=== PATIENT | female | born 1985 | race African-American/Black ===

== ENCOUNTER 2021-10-13 05:34 | Emergency (ER) | payer SELFPAY ==
--- NOTE | 2021-10-13 05:43 | XRR_ITS ---
PROCEDURE INFORMATION: Exam: XR Chest Exam date and time: 10/13/2021 5:57 AM Age: 35 years old Clinical indication: Angina and dyspnea; Patient HX: SOB chest tightness since 2 am this morning; Additional info: Dyspnea/cough TECHNIQUE: Imaging protocol: XR of the chest. Views: 1 view. COMPARISON: No relevant prior studies available. FINDINGS: Lungs: No CHF/pulmonary edema. Visible lungs appear essentially clear. Pleural spaces: No visible pneumothorax. No definite pleural fluid. Heart/Mediastinum: Heart size is within normal limits. Bones/joints: No significant acute finding. XR/XR chest 1V portable [id number] IMPRESSION: 1. Essentially unremarkable single view chest. 2. Other findings discussed above.
--- NOTE | 2021-10-13 05:43 | ED_ITS ---
HPI - General Adult General: Chief complaint: Chest Pain Stated complaint: chest tightness, Dizzy,Weakness Time Seen by Provider: 10/13/21 05:41 Source: patient Mode of arrival: ambulatory Limitations: no limitations History of Present Illness: 35-year-old female presents to the emergency room with complaints of lightheadedness dizziness and weakness while at work. She was working got very lightheaded dizzy felt extremely weak got to the point that she had to sit down. When she rested the symptoms did resolve. She had a little bit of chest discomfort with that as well. Patient has a history of anemia with menometrorrhagia and uterine fibroids. She was wanting to see gynecology to have definitive treatment but recently moved and has not established with a new physician. She has had anemia secondary to this in the past that required blood transfusions. Patient is not diabetic has no history of asthma or coronary artery disease. Her symptoms have completely resolved at this time. She denies any hematochezia melena hematemesis or coffee-ground emesis. She has had other episodes in the past that were not as intense as this. Onset (ago): minute(s) Location: chest Radiation: non-radiation Severity: moderate Relieving factors: none Exacerbating factors: none Associated symptoms: Reports chest pain, dyspnea, malaise, palpitations, short of breath and weakness; Deny confusion, cough, diaphoresis, decreased appetite, fevers/chills, headache(s), nausea, rash, seizures, syncope or vomiting Treatments prior to arrival: none Review of Systems Const: Reports: malaise; Denies: fever(s), chills, body aches or diaphoresis ENMT: Denies: throat pain, ear or mastoid pain, nasal discharge or nasal congestion Card: Reports: chest pain and palpitations; Denies: edema, swelling of feet/ankles or syncope Resp: Reports: dyspnea GI: Denies: abdominal pain, nausea, vomiting, hematemesis or coffee ground emesis : Denies: flank pain, difficulty voiding, dysuria, urinary frequency or urinary urgency Skin/Breast: Denies: rash or pruritus Neuro: Denies: headache(s) or confusion Endo: Reports: tired all the time; Denies: polyuria or polydipsia John/Lymph: Reports: other (Anemia) [facility] PFSH: Medical History Anemia Menometrorrhagia Surgical History Previous section X3 Social History Smoking and tobacco status: current every day smoker Physical Exam Const: GENERAL APPEARANCE: cooperative and comfortable ORIENTATION/CONSCIOUSNESS: Yes awake, Yes oriented to person, Yes oriented to place and Yes oriented to time HENMT: COMMON NORMALS: normocephalic, atraumatic and hearing grossly normal bilaterally HEAD & SCALP: normocephalic and atraumatic Resp: COMMON NORMALS: normal respiratory effort, No retractions, No use of accessory muscles and clear to auscultation bilaterally AUSCULTATION: clear to auscultation bilaterally Cardio: COMMON NORMALS: regular rate, regular rhythm and No murmurs present (Cardio) RATE: regular rate RHYTHM: regular rhythm GI: COMMON NORMALS: Soft to palpation and No hepatosplenomegaly present AUSCULTATION: Yes normoactive bowel sounds PALPATION: Yes Soft to palpation, No Tenderness to palpation present (GI), No Guarding due to palpation present (GI) and Yes No hepatosplenomegaly present Extremity: COMMON NORMALS: normal to inspection, capillary refill normal, no clubbing, cyanosis or edema, no calf tenderness and no pedal edema Neuro: SENSORIUM/ORIENTATION: Yes oriented to person, Yes oriented to place and Yes oriented to time Skin: COMMON NORMALS: no rashes or lesions noted GENERAL SKIN EXAM: no rashes or lesions noted Course Vital Signs: Vital signs: Vital Signs Temperature 98.1 F 10/13/21 05:48 Pulse Rate 71 10/13/21 05:48 Respiratory Rate 16 10/13/21 05:48 Blood Pressure 145/84 10/13/21 06:55 Pulse Oximetry 100 10/13/21 05:48 [facility] - General Adult Medical Decision Making Reviewed lab findings with the patient. Her hemoglobin is below 8 she is defin itely symptomatic and from her history that she gave she has had increasing symptoms to the point now where she presents to the emergency room. Her vital signs at this point are stable. We discussed the risks and benefits of going ahead and transfusing her. She would feel better this is obviously chronic given her indices her MCV is 69. She is already taking iron supplement. Ultimately after long discussion patient would prefer to go ahead with the transfusion. She also like to get referred to gynecology. 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 Given the fact she is previously had to be transfused and is being transfused again today I do think it is important that she follows through with this. We will make referral through case management gynecology. Transfuse 1 unit packed red blood cells and anticipate discharge. Lab Data I reviewed the patient's lab results. : 10/13/21 05:43 10/13/21 05:43 Laboratory Results WBC 8.7 10^3/uL (4.0-10.0) 10/13/21 05:43 RBC 4.11 10^6/uL (4.1-5.3) 10/13/21 05:43 Hgb 7.9 g/dL (11.5-15.3) L 10/13/21 05:43 Hct 28.4 % (37.0-47.0) L 10/13/21 05:43 MCV 69.1 fl (81-99) L 10/13/21 05:43 MCH 19.2 pg (28.0-34.0) L 10/13/21 05:43 MCHC 27.8 g/dL (30.0-36.0) L 10/13/21 05:43 RDW 21.2 % (12.1-15.1) H 10/13/21 05:43 Plt Count 547 10^3/cmm (130-400) H 10/13/21 05:43 MPV 9.9 fL (7.4-10.4) 10/13/21 05:43 Neut % (Auto) 57.3 % 10/13/21 05:43 Lymph % (Auto) 35.9 % 10/13/21 05:43 [place] % (Auto) 4.4 % 10/13/21 05:43 Eos % (Auto) 1.3 % 10/13/21 05:43 Baso % (Auto) 0.8 % 10/13/21 05:43 Neut # (Auto) 4.97 10^3/uL (1.8-7.7) 10/13/21 05:43 Lymph # (Auto) 3.1 10^3/uL (0.8-4.8) 10/13/21 05:43 [place] # (Auto) 0.4 10^3/uL (0.2-0.9) 10/13/21 05:43 Eos # (Auto) 0.1 10^3/uL (0.0-0.8) 10/13/21 05:43 Baso # (Auto) 0.1 10^3/uL (0.0-0.1) 10/13/21 05:43 Nucleated RBC % (auto) 0 % 10/13/21 05:43 Nucleated RBCs # 0.0 /100WBC 10/13/21 05:43 Sodium 139 mmol/L (136-145) 10/13/21 05:43 Potassium 4.1 mmol/L (3.5-5.1) 10/13/21 05:43 Chloride 105 mmol/L (98-107) 10/13/21 05:43 Carbon Dioxide 23 mmol/L (22-29) 10/13/21 05:43 Anion Gap 15.1 (5-19) 10/13/21 05:43 BUN 7 mg/dL (6-20) 10/13/21 05:43 Creatinine 0.7 mg/dL (0.5-0.9) 10/13/21 05:43 GFR Calculation 114.6 mL/min (90-130) 10/13/21 05:43 Glucose 99 mg/dL (65-115) 10/13/21 05:43 Calculated Osmolality 286 mOsm/kg (285-295) 10/13/21 05:43 Calcium 9.5 mg/dL (8.5-10.5) 10/13/21 05:43 Total Bilirubin 0.2 mg/dL (0.15-1.2) 10/13/21 05:43 AST 15 U/L (0-32) 10/13/21 05:43 ALT 8 U/L (0-33) 10/13/21 05:43 Alkaline Phosphatase 77 IU/L (35-105) 10/13/21 05:43 Total Protein 8.0 g/dL (6.6-8.7) 10/13/21 05:43 Albumin 4.3 g/dL (3.5-5.2) 10/13/21 05:43 Globulin 3.7 g/dL (1.3-4.6) 10/13/21 05:43 Blood Type Cancelled 10/13/21 06:38 Rho(D) Type Cancelled 10/13/21 06:38 Antibody Screen Cancelled 10/13/21 06:38 Crossmatch See Detail 10/13/21 06:38 Discharge Plan Discharge Patient Disposition: Home Clinical Impression: Menometrorrhagia, Anemia Condition: Stable Prescriptions: No Action Iron (ferrous sulfate) 325 mg (65 mg iron) Tablet 325 mg PO DAILY 0RF Discharge Orders: Discharge ED (Routine); Ordered 10/13/21 Ordered By: Garrick Ponce Patient Instructions: Opioid Safety Activity Restrictions/Additional Instructions: You will be discharged from the ER and received a transfusion in outpatient area. digital media manager will make arrangements for you to see gynecology to evaluate for definitive care for the excessive uterine bleeding. She has any worsening or changes symptoms return to the emergency room. Continue to take iron supplementation. Coding Level of Care Code ED Water Resource Engineering Specialist for Chg Fwd Exam Comprehensive
--- NOTE | 2021-10-13 05:44 | ECG_ITS ---
[facility] Test Date: 2021-10-13 Pat Name: Sharlene Dent Department: Room: Gender: Female Pipeline Welder: : 1985 Requested By: Garrick Peres Order Number: [id number] Cole MD: Katie Almonte M.D. Measurements Intervals [place] Rate: 80 P: 43 LA: 156 QRS: 11 QRSD: 89 T: 18 QT: 362 QTc: 419 Interpretive Statements SINUS RHYTHM No previous ECG available for comparison Electronically Signed On 10-13-2021 20:27:23 CDT by Katie Almonte M.D. [id number]
[2021-10-13 05:48] VITALS: BP 145/85; PULSE 71; RESP 16; TEMP 36.7; O2SAT 100; BMI 34.3
[2021-10-13 05:58] LABS: Basophils # 0.1 10^3/uL (0.0-0.1); Basophils % 0.8 %; Eosinophils # 0.1 10^3/uL (0.0-0.8); Eosinophils % 1.3 %; Hematocrit 28.4 % (37.0-47.0); Hemoglobin 7.9 g/dL (11.5-15.3); Lymphocytes # 3.1 10^3/uL (0.8-4.8); Lymphocytes % 35.9 %; Mean Corpuscular HGB Conc 27.8 g/dL (30.0-36.0); Mean Corpuscular Hemoglobin 19.2 pg (28.0-34.0); Mean Corpuscular Volume 69.1 fl (81-99); Mean Platelet Volume 9.9 fL (7.4-10.4); Monocytes # 0.4 10^3/uL (0.2-0.9); Monocytes % 4.4 %; Neutrophils # 4.97 10^3/uL (1.8-7.7); Neutrophils % 57.3 %; Nucleated Red Blood Cells % 0 %; Platelet Count 547 10^3/cmm (130-400); Red Blood Count 4.11 10^6/uL (4.1-5.3); Red Cell Distribution Width 21.2 % (12.1-15.1); White Blood Count 8.7 10^3/uL (4.0-10.0)
[2021-10-13 06:10] LABS: Alanine Aminotransferase 8 U/L (0-33); Albumin Level 4.3 g/dL (3.5-5.2); Alkaline Phosphatase 77 IU/L (35-105); Anion Gap 15.1 (5-19); Aspartate Amino Transferase 15 U/L (0-32); Blood Urea Nitrogen 7 mg/dL (6-20); Calcium 9.5 mg/dL (8.5-10.5); Carbon Dioxide 23 mmol/L (22-29); Chloride 105 mmol/L (98-107); Globulin 3.7 g/dL (1.3-4.6); Glomerular Filtration Rate 114.6 mL/min (90-130); Glucose 99 mg/dL (65-115); Osmolality Calculated 286 mOsm/kg (285-295); Potassium 4.1 mmol/L (3.5-5.1); Sodium 139 mmol/L (136-145); Total Bilirubin 0.2 mg/dL (0.15-1.2)
[2021-10-13 06:55] VITALS: BP 145/84
--- NOTE | 2021-10-13 07:43 | DCPLANNER ---
Addendum entered by Lula Cabrera 10/19/21 07:43: [facility] let case management director know that clinic has tried to reach patient, has not been able to speak with patient. Clinic left a voicemail for patient to return clinics phone call, and to call clinic to schedule a follow up appointment. Clinic sent patient a letter requesting patient to call clinic. Original Note: train operations manager had message to schedule a follow up appointment for patient with [facility]. train operations manager sent patients information to the front office staff at [facility]. Patients information will be printed and reviewed. Clinic will call patient with appointment information.
== END 2021-10-13 06:58 | disposition home or self-care (01) ==
PROVIDERS: Emergency Provider Family Medicine
DX: D64.9 Anemia, unspecified (principal); N92.1 Excessive and frequent menstruation with irregular cycle; F17.200 Nicotine dependence, unspecified, uncomplicated
CPT/HCPCS: 71045; 80053; 85025; 93005; 99283

== ENCOUNTER → 2021-10-13 07:00 | Day surgery (SDC) | payer SELFPAY ==
[2021-10-13 07:22] VITALS: BP 150/78; PULSE 83; RESP 18; TEMP 36.6; O2SAT 99
[2021-10-13 07:54] VITALS: BP 129/74; PULSE 80; RESP 18; TEMP 36.6
[2021-10-13] MEDS: sodium chloride 0.9% (100 ml) 100 ML 10 ML (08:00)
[2021-10-13 08:10] VITALS: BP 124/75; PULSE 76; RESP 18; TEMP 36.8; O2SAT 100
[2021-10-13 08:25] VITALS: BP 116/68; PULSE 86; RESP 18; TEMP 36.8
--- NOTE | 2021-10-13 08:44 | PC.NURSE ---
Pt to GI lab for one unit PRBC's. Blood transfusing without difficulty. No reaction noted. Pt provided breakfast. Sitting comfortably in chair.
[2021-10-13 09:25] VITALS: BP 125/66; PULSE 81; RESP 18; TEMP 36.8; O2SAT 99
== END ==
LOC: GILAB 07:03
PROVIDERS: Visit Provider Family Medicine
DX: D64.9 Anemia, unspecified (principal)
CPT/HCPCS: 36430; 86850; 86900; 86920; P9016